=== PATIENT | female | born 1935 | race Caucasian/White ===

== ENCOUNTER → 2016-11-26 | Outpatient (CLI) | payer OTHER ==
[~2016-11-26] MED LIST: ACET-1138 PO; ACET1TAB84 PO; ATOR-24 PO; BTP80 PO; CLTP PO; FRRS300 PO; FURO80TA63 PO; LOSA50TA6 PO; NCY50 PO; ONDA8TAB6 PO; POLY99.0 OPB; PRLSR20 PO; PRM625 PO; SNK PO; WARF1TAB6 PO
[2016-11-26 18:10] LABS: URINE APPEARANCE CLEAR (CLEAR); URINE BILIRUBIN NEG (NEG); URINE COLOR YELLOW; URINE NITRITE NEG (NEG); URINE SPECIFIC GRAVITY 1.012 (1.000-1.030); UROBILINOGEN NEG (NEG); ZZUR CULT IF INDIC CLEAN CATCH NO
[2016-11-26 18:11] LABS: INR 1.8 (0.9-1.1); PARTIAL THROMBOPLASTIN RATIO 1.2; PROTHROMBIN TIME (PATIENT) 19.9 SECONDS (9.0-12.0)
[2016-11-26 18:12] LABS: MANUAL MICROSCOPIC REQUIRED? NO; REVIEW REQ? NO
[2016-11-26 18:31] LABS: BASO % 0.1 %; BASO ABS # 0.01 K/uL (0-0.2); COMPLETE YES; EOS % 0.1 %; HEMATOCRIT 43.4 % (37-47); IG% 0.6 %; LYMPH % 13.2 %; LYMPH ABS # 0.96 K/uL (1.2-3.4); MEAN CELL VOLUME 100.2 fL (80-100); MEAN CORPUSCULAR HEMOGLOBIN 31.4 pg (25-34); MEAN CORPUSCULAR HGB CONC 31.3 g/dl (32-36); MEAN PLATELET VOLUME 11.9 fL (7.4-10.4); MONO % 5.1 %; NEUT % 80.9 %; PLATELET COUNT 153 K/uL (130-400); RED BLOOD COUNT 4.33 M/uL (4.2-5.4); WHITE BLOOD COUNT 7.26 K/uL (4.8-10.8)
[2016-11-26 18:43] LABS: BLOOD UREA NITROGEN 23 mg/dl (7-18); BUN/CREATININE RATIO 23.8 (10-20); CALCIUM 8.9 mg/dl (8.5-10.1); CARBON DIOXIDE 28 mmol/L (21-32); CHLORIDE 104 mmol/L (98-107); CREATININE 0.95 mg/dl (0.60-1.20); GLUCOSE 154 mg/dl (70-99); POTASSIUM 4.3 mmol/L (3.5-5.1); SODIUM 140 mmol/L (136-145)
[2016-11-27 06:30] LABS: ESTIMATED AVERAGE GLUCOSE 123 mg/dl; HA1C FLAG Normal (Normal)
--- NOTE | 2016-12-02 11:50 | CODING QUERY MEDICAL NECESSITY ---
CQSUPPORTING DIAGNOSIS NEEDED A supporting diagnosis is required for the test/procedure performed on this patient in order for us to be reimbursed by the patient's insurance. Please provide a supporting diagnosis for the following test/procedure listed below next to the test name along with your signature. *If there is no additional diagnosis for this patient that would support the following test/procedure please document that below next to the test/procedure. Test(s)/Procedure(s) that require a supporting diagnosis: DOS 11/26/16 GLYCATED HEMOGLOBIN PROTHROMBIN TIME PROTHROMBIN Provider Signature: Date: Thank you Jenniffer Desai [facility] Information Management Once completed, please kindly fax back to [phone] For questions please call [phone]
== END | disposition home or self-care (01) ==
LOC: C.LABMFLN 10:11
PROVIDERS: ATTEND Orthopaedic Surgery Sports Medicine
DX: Z01.818 Encounter for other preprocedural examination (principal)

== ENCOUNTER 2016-12-18 10:06 | Inpatient (IN) | payer OTHER ==
[2016-10-02 13:38] VITALS: BMI 27.0
[2016-10-02 13:48] VITALS: BMI 26.0
--- NOTE | 2016-10-02 14:13 | PAT Medication Instructions ---
Service Date Oct 02, 2016. Current Home Medication List Acetaminophen (Tylenol Arthritis Ext Rel), 1,300 MG PO BID Atorvastatin (Lipitor), 40 MG PO WEDNESDAY AM Calcium/Vitamin D (Caltrate 600 Plus *), 1 TAB PO BID Estrogens, Conjugated (Premarin), 0.625 MG PO QAM Ferrous Sulfate (Ferrous Sulfate), 1 TAB PO QAM Furosemide (Furosemide), 20 MG PO QAM Losartan Potassium (Cozaar), 50 MG PO QPM Omeprazole (Prilosec), 20 MG PO QAM Polyvinyl Alcohol (Artificial Tears), 1 DROP OPB PRN Sotalol Hcl (Betapace *), 120 MG PO BID Warfarin Sod (Jantoven), 1.5 MG PO 4xweek Warfarin Sod (Jantoven), 1 MG PO 3XWEEK Medication Instructions For Your Scheduled Surgery Warfarin Sod (Jantoven), (per [facility] instructions) - Hold the following medications evening prior to surgery: Losartan Potassium (Cozaar), 50 MG PO QPM - Hold the following medications the morning of surgery: Furosemide (Furosemide), 20 MG PO QAM Ferrous Sulfate (Ferrous Sulfate), 1 TAB PO QAM Calcium/Vitamin D (Caltrate 600 Plus *), 1 TAB PO BID Estrogens, Conjugated (Premarin), 0.625 MG PO QAM (can take after the surgery ) - Take the following medications the morning of surgery with a sip of water: Sotalol Hcl (Betapace *), 120 MG PO BID Polyvinyl Alcohol (Artificial Tears), 1 DROP OPB PRN Omeprazole (Prilosec), 20 MG PO QAM Atorvastatin (Lipitor), 40 MG PO WEDNESDAY AM Acetaminophen (Tylenol Arthritis Ext Rel), 1,300 MG PO BID (if needed) - Take the following medications as scheduled the night before surgery: Sotalol Hcl (Betapace *), 120 MG PO BID Polyvinyl Alcohol (Artificial Tears), 1 DROP OPB PRN Calcium/Vitamin D (Caltrate 600 Plus *), 1 TAB PO BID Acetaminophen (Tylenol Arthritis Ext Rel), 1,300 MG PO BID If you have any questions please call us at [phone] or [phone] ( Sandra) or [phone]
[2016-10-02 15:06] LABS: BASO % 0.3 %; BASO ABS # 0.02 K/uL (0-0.2); COMPLETE YES; HEMATOCRIT 40.5 % (37-47); IG% 0.6 %; LYMPH % 12.5 %; LYMPH ABS # 0.82 K/uL (1.2-3.4); MEAN CELL VOLUME 96.7 fL (80-100); MEAN CORPUSCULAR HGB CONC 32.1 g/dl (32-36); MEAN PLATELET VOLUME 10.8 fL (7.4-10.4); MONO % 6.1 %; NEUT % 80.5 %; PLATELET COUNT 172 K/uL (130-400); RED BLOOD COUNT 4.19 M/uL (4.2-5.4); WHITE BLOOD COUNT 6.56 K/uL (4.8-10.8)
[2016-10-02 15:10] LABS: MANUAL MICROSCOPIC REQUIRED? NO; REVIEW REQ? NO; URINE APPEARANCE CLEAR (CLEAR); URINE BILIRUBIN NEG (NEG); URINE COLOR YELLOW; URINE EPITHELIAL CELL AUTO >30 /lpf (0-5); URINE NITRITE NEG (NEG); URINE SPECIFIC GRAVITY 1.012 (1.000-1.030); UROBILINOGEN NEG (NEG); ZZUR CULT IF INDIC CLEAN CATCH YES
[2016-10-02 15:14] LABS: INR 1.8 (0.9-1.1); PARTIAL THROMBOPLASTIN RATIO 1.2; PROTHROMBIN TIME (PATIENT) 20.1 SECONDS (9.0-12.0)
--- NOTE | 2016-10-02 15:24 | DIAGNOSTIC IMAGING REPORT ---
CHEST PREADMISSION(PA/LAT) CLINICAL HISTORY: Preoperative chest COMPARISON STUDY: 08/15/2015 FINDINGS: The heart is at the upper limits of normal in size. There is mild aortic tortuosity/ectasia. There is no focal pulmonary consolidation. There is no failure. There are no pleural effusions. There are minor atelectatic changes at the level of the left costophrenic angle. There are postsurgical changes involving the spine[ IMPRESSION: No active disease in the chest. Electronically signed by: Stuart Donis M.D. 10/02/2016 3:22 PM Dictated Date/Time: 10/02/2016 3:21 PM
[2016-10-02 15:25] LABS: BUN/CREATININE RATIO 24.5 (10-20); CALCIUM 8.6 mg/dl (8.5-10.1); CREATININE 0.73 mg/dl (0.60-1.20); ESTIMATED AVERAGE GLUCOSE 131 mg/dl; HA1C FLAG Normal (Normal); POTASSIUM 4.5 mmol/L (3.5-5.1)
--- NOTE | 2016-12-17 21:26 | HISTORY & PHYSICAL EXAMINATION ---
DATE OF ADMISSION: 12/18/2016 REVISED HISTORY AND PHYSICAL CHIEF COMPLAINT: Right shoulder pain. HISTORY OF PRESENT ILLNESS: This is an 81-year-old female patient of Dr. Sharif'lyric complaining of chronic right shoulder pain, longstanding, now progressively getting worse. The patient has been diagnosed with end-stage osteoarthritis with insufficient rotator cuff and wished to proceed with a right reversed total shoulder arthroplasty. PAST MEDICAL HISTORY: Heart murmur, hypertension, palpitations, osteoarthritis, neck problems, sciatica, and acid reflux. SOCIAL HISTORY: Nonsmoker, nondrinker. PAST SURGICAL HISTORY: Both total knee replacements, right rotator cuff surgery x2, hysterectomy, cholecystectomy, tonsillectomy, x3, hernia repair and appendectomy. REVIEW OF SYSTEMS: The patient complains of chronic right shoulder pain and weakness. Otherwise, denies any shortness of breath, chest pain, nausea, vomiting or any other joint complaints. FAMILY HISTORY: Noncontributory. SOCIAL HISTORY: Nonsmoker, nondrinker. MEDICATIONS: 1. Tylenol Arthritis 650 mg daily. 2. Coumadin 1 to 1.5 mg daily as directed. 3. Flonase 50 mcg each nostril daily. 4. Losartan 50 mg daily. 5. Premarin 0.625 mg monthly. 6. Sotalol 120 mg b.i.d. 7. Prilosec 20 mg daily. 8. Atorvastatin 40 mg daily. 9. Ferrous sulfate 325 mg daily. 10. Calcium 600 daily. 11. Lasix 40 mg daily. 12. Prednisone 5 mg 2 tablets q.a.m. ALLERGIES: LATEX, SULFONAMIDE, OXYCODONE, GABAPENTIN, OCCLUSIVE TAPE AND ADHESIVE AND DEMEROL. PHYSICAL EXAMINATION: GENERAL: Well-developed, well-nourished 81-year-old female in no acute distress. She is alert and oriented x3 and pleasant. HEENT: Normocephalic, atraumatic. Extraocular motions are intact. Pupils are equal and reactive to light. HEART: Has an irregular heartbeat consistent with aFib: LUNGS: Clear. ABDOMEN: Soft and nontender, bowel sounds are present. EXTREMITIES: Right shoulder reveals active range of motion of 90 degrees, passively to 170. She has 3/5 strength globally. She has crepitation and pain with passive range of motion. NEUROLOGIC: Neurovascularly, she is intact in her right upper extremity. DIAGNOSES: Right shoulder end-stage osteoarthritis with insufficient rotator cuff. She has a history of a heart murmur, hypertension, palpitations, osteoarthritis, neck problems, sciatica, and acid reflux. PLAN: The patient was advised of her diagnosis. Indications, risks, benefits, and postop course have all been reviewed. The patient wishes to proceed with a right reversed total shoulder arthroplasty. Necessary consent forms, preoperative testing and clearances will be obtained. BILL
--- NOTE | 2016-12-17 21:31 | HISTORY & PHYSICAL EXAMINATION ---
DATE OF ADMISSION: 12/18/2016 CHIEF COMPLAINT: Chronic right shoulder pain. HISTORY OF PRESENT ILLNESS: This is an 81-year-old female patient of Dr. Sharif'lyric complaining of chronic right shoulder pain and decreased strength, long-standing and now progressively getting worse. The patient has failed conservative treatments. She has been diagnosed with end-stage osteoarthritis and insufficient rotator cuff per clinical and radiographic exams. She wishes to proceed with a right reverse total shoulder arthroplasty. PAST MEDICAL HISTORY: Heart murmur, hypertension, palpitations, osteoarthritis, neck problems, sciatica and acid reflux. SOCIAL HISTORY: Nonsmoker and nondrinker. PAST SURGICAL HISTORY: Bilateral knee surgery, shoulder surgery, right rotator cuff surgery, hysterectomy, cholecystectomy, tonsillectomy, x3, hernia repair and appendectomy. FAMILY HISTORY: Noncontributory. REVIEW OF SYSTEMS: The patient complains of chronic right shoulder pain and decreased strength. Otherwise denies any shortness of breath, chest pain, nausea, vomiting or any other joint complaints. MEDICATIONS: Inlcude; 1. Tylenol 650 as needed. 2. Coumadin 1 mg 1 to 1.5 tablets daily. 3. Flonase 50 mcg nasal route one spray in each nostril daily. 4. Losartan 50 mg daily. 5. Premarin 0.625 mg every 21 days. 6. Sotalol 120 mg one tablet b.i.d. 7. Prilosec 20 mg daily. 8. Atorvastatin 40 mg daily. 9. Ferrous sulfate 325 mg daily. 10. Calcium daily. 11. Lasix 40 mg daily. 12. Prednisone 5 mg two tablets q.a.m. ALLERGIES: INCLUDE LATEX, SULFA, OXYCODONE, GABAPENTIN, TAPE, ADHESIVES. PLAN: The patient was advised of her diagnoses. Indications, risks, benefits, postop course have all been reviewed. The patient wishes to proceed with a right reverse total shoulder arthroplasty. Necessary consent forms, preoperative testing and clearances will be obtained.
[~2016-12-18] VITALS: Ht 160 cm; Wt 69.0 kg
[~2016-12-18 10:06] MED LIST changes: -ACET-1138 PO; +ACETAMINOPHEN 500 MG TAB PO SCH; +BUPIVACAINE 0.5 % 5 MG/1 ML PF 10ML VIAL ONE; +CEFAZOLIN 1000MG/55 ML D5W 55 ML IV SCH; +CLONIDINE HCL 100 MCG/ML SYRINGE ONE; +CeleBREX 200 MG CAP PO SCH; +DEXAMETHASONE 4 MG TAB PO SCH; +FAMOTIDINE 20 MG TAB PO SCH; +GABAPENTIN 300 MG CAP PO SCH; +LACTATED RINGER'S 1000ML 1,000 ML IV SCH; +LACTATED RINGER'S 1000ML IV SCH; +MEPIVACAINE HCL 1.5% 30 ML VIAL ONE; +METOCLOPRAMIDE HCL 10 MG TAB PO SCH; -NCY50 PO; -ONDA8TAB6 PO; -SNK PO
[2016-12-18 10:50] VITALS: BP 140/81; PULSE 71; TEMP 36.5; O2SAT 92; Ht 160 cm; Wt 69.0 kg
[2016-12-18 11:16] LABS: PARTIAL THROMBOPLASTIN RATIO 0.9; PROTHROMBIN TIME (PATIENT) 10.8 SECONDS (9.0-12.0)
--- NOTE | 2016-12-18 12:17 | History & Physical Bridge Note ---
H&P Re-Evaluation Bridge Note: I have examined the patient, reviewed the History & Physical and in the interval since the performance of the History & Physical I have noted the following changes of clinical significance: No changes noted
[2016-12-18] MEDS ORDERED: MIDAZOLAM HCL 1 MG/ML 2ML VIAL ONE ×2 (13:04→13:39)
[2016-12-18] MEDS ORDERED: FENTANYL CITRATE INJ 50 MCG/1 ML 2 ML VIAL ONE ×3 (13:04→13:40)
[2016-12-18] MEDS ORDERED: NEOSTIGMINE METHYLSULFATE 5 MG/5 ML SYR ONE (13:39)
[2016-12-18] MEDS ORDERED: PROPOFOL IV EMULSION 10 MG/ML 20 ML VIAL IV ONE (13:39)
[2016-12-18] MEDS ORDERED: ONDANSETRON INJ 2 MG/ML 2 ML VIAL ONE (13:39)
[2016-12-18] MEDS ORDERED: LIDOCAINE HCL 2% 2 ML VIAL (20MG/ML) ONE (13:39)
[2016-12-18] MEDS ORDERED: GLYCOPYRROLATE INJ 0.2 MG/ML VIAL ONE ×2 (13:39→15:18)
[2016-12-18] MEDS ORDERED: ROCURONIUM BROMIDE 10 MG/ML 5 ML VIAL ONE (13:39)
[2016-12-18] MEDS ORDERED: DEXAMETHASONE SOD INJ 4 MG/ML VIAL ONE (13:39)
[2016-12-18] MEDS ORDERED: BACITRACIN 50000 UNIT VIAL ONE (13:47)
[2016-12-18] MEDS ORDERED: ETOMIDATE 2 MG/ML 20 ML VIAL IV ONE (15:18)
[2016-12-18] MEDS ORDERED: PHENYLEPHRINE HCL INJ 10 MG/ML VIAL ONE (15:18)
[2016-12-18] MEDS ORDERED: SUCCINYLCHOLINE CHLORIDE 20 MG/ML 10 ML VIAL IV ONE (15:18)
[2016-12-18] MEDS ORDERED: EpHEDrine SULFATE INJ 50 MG/ML AMP IV PRN (15:30)
[2016-12-18] MEDS ORDERED: ONDANSETRON INJ 2 MG/ML 2 ML VIAL IV PRN (15:30)
[2016-12-18] MEDS ORDERED: PHENYLEPHRINE 100MCG/ML 5ML SYR IV PRN (15:30)
[2016-12-18] MEDS ORDERED: FENTANYL CITRATE INJ 50 MCG/1 ML 2 ML VIAL IV PRN (15:30)
[2016-12-18] MEDS ORDERED: FLUMAZENIL 0.1 MG/1 ML 10 ML VIAL IV PRN (15:30)
[2016-12-18] MEDS ORDERED: NALOXONE HCL 0.4 MG/1 ML VIAL/CARP IV PRN ×2 (15:30→16:45)
[2016-12-18] MEDS ORDERED: LABETALOL HCL IV 5 MG/ML 20ML IV PRN (15:30)
--- NOTE | 2016-12-18 16:39 | [facility] Operative Report ---
Operative Report Operative Date December 18, 2016. Pre-Operative Diagnosis Right shoulder end-stage osteoarthritis chronic rotator cuff tear failed prior repairs Post-Operative Diagnosis same biceps tendinopathy Procedure(s) Performed reversed TSA bicep tenodesis right Surgeon Dr. Miguelangel Sharif Waterproofing Mixer Surgeon(s) Albert Hedrick PA-C Estimated Blood Loss 50mL Findings as above Specimens A. Right Humeral Head Drains 2 hemovac Anesthesia general regional Complication(s) None Disposition Recovery Room / PACU Indications end stage arthropathy I attest to the content of the Intraoperative Record and any orders documented therein. Any exceptions are noted below.
[2016-12-18] MEDS ORDERED: SOD PHOSPHATE/SOD BIPHOSPHATE ENEMA 132 ML BTL PR PRN (16:45)
[2016-12-18] MEDS ORDERED: TAPENTADOL HCL 50 MG TAB PO PRN (16:45)
[2016-12-18] MEDS ORDERED: ARTIFICIAL TEARS OP SOLN OPB PRN ×2 (16:45)
[2016-12-18] MEDS ORDERED: BISACODYL 10 MG SUPP PR PRN (16:45)
[2016-12-18] MEDS ORDERED: ZOLPIDEM TARTRATE 5 MG TAB PO PRN (16:45)
[2016-12-18] MEDS ORDERED: MAGNESIUM HYDROXIDE SUSP 30 ML UDC PO PRN (16:45)
[2016-12-18] MEDS ORDERED: MoRPHine SULFATE 2 MG/ML CARP IV PRN ×2 (16:45→17:00)
[2016-12-18] MEDS ORDERED: MoRPHine SULFATE 4 MG/ML 1 ML CARP\\VIAL IV PRN (17:00)
--- NOTE | 2016-12-18 17:25 | Anesthesiology Progress Note ---
Anesthesia Post Op Note Date & Time December 18, 2016 at 17:22 Vital Signs Pain Intensity: 1 Vital Signs Past 12 Hours Date Time Temp Pulse Resp B/P Pulse Ox O2 Delivery O2 Flow Rate FiO2 12/18/16 17:10 67 16 175/85 99 Nasal Cannula 3 166/80 12/18/16 16:50 70 16 172/83 99 Mask 10 158/71 12/18/16 16:41 36.3 75 16 144/55 99 Mask 10 12/18/16 10:50 36.5 71 20 140/81 92 Room Air Notes Mental Status: alert / awake / arousable, participated in evaluation Pt Amnestic to Procedure: Yes Nausea / Vomiting: adequately controlled Pain: adequately controlled Airway Patency, RR, SpO2: stable & adequate BP & HR: stable & adequate Hydration State: stable & adequate Anesthetic Complications: no major complications apparent The patient did well during the surgery. She was monitored with an arterial line and had a phenylephrine gtt to maintain her blood pressure. She is stable in recovery. I spoke to Dr. Bell who will follow the patient on the floor.
--- NOTE | 2016-12-18 17:29 | DIAGNOSTIC IMAGING REPORT ---
RIGHT SHOULDER MIN 2 VIEWS ROUTINE CLINICAL HISTORY: Post shoulder surgery Right COMPARISON STUDY: None. FINDINGS: 2 views of the right shoulder demonstrate a reverse total shoulder arthroplasty. The hardware appears intact. No fracture or dislocation. Skin joann and surgical drains are in place. IMPRESSION: Right total shoulder arthroplasty. No evidence for hardware complication. Electronically signed by: Rony Mccoy M.D. 12/18/2016 5:28 PM Dictated Date/Time: 12/18/2016 5:27 PM
[2016-12-18 17:45] VITALS: BP 157/91; PULSE 65; TEMP 36.6; O2SAT 96
--- NOTE | 2016-12-18 18:10 | OPERATIVE REPORT ---
DATE OF OPERATION: 12/18/2016 INDICATION FOR PROCEDURE: The patient is an 81-year-old female with chronic progressive pain in her right shoulder. History of 2 previous rotator cuff repair with one of the repairs being opened. She developed progressive pain and disability with regard to degenerative arthritis now on her right shoulder. She clearly has rotator cuff arthropathy on x-rays. She has proximal migration of the humerus. She has [id number] in the glenohumeral joint. PREOPERATIVE DIAGNOSES: Rotator cuff arthropathy, end-stage glenohumeral osteoarthritis and failed rotator cuff repair. POSTOPERATIVE DIAGNOSES: Same including biceps tenosynovitis, biceps tendinopathy. PROCEDURE: Right reverse total shoulder arthroplasty including a biceps tenodesis. SURGEON: Dr. Sharif. CONFECTIONERY LABORATORY MANAGER: Albert Hedrick PA-C ANESTHESIA: Regional block and general. OPERATIVE PROCEDURE: The patient was taken to the operating room, anesthetized block and general anesthetic. Her shoulder exam demonstrated she had passive forward elevation to 150 degrees, abduction to 100 and external rotation between 25 and 30 only and marked [id number] crepitation. She had anterior scar a long scar extending anterolateral over the deltoid. Her right shoulder was then positioned on the operating room table with a towel roll in the medial border of right scapula. She was translated to right side of the bed, so her shoulder could be manipulated off the bed as necessary. A foam headrest was placed. Protective eyewear was placed. TEDS, SCDs and a Miguel were placed. She was placed in about the 40 degree beach chair position. Her right shoulder was then sterilely prepped and draped with ChloraPrep in the usual sterile fashion. We did not use her scar and just used an anterior medial and placed deltopectoral incision. Skin was incised in longitudinal fashion. Fat was divided down the fascia. The cephalic vein was dissected out and retracted laterally with the deltoid. Pectoralis was retracted medially. The upper centimeter of the pectoralis was released for inferior exposure. The biceps tendon was identified. 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 The biceps tendon was tenodesed to the pectoralis tendon using [id number] #2 FiberWire sutures. The proximal biceps was divided and resected. The axillary nerve was palpated and identified. Some of the fibers of the anterior subscap were maintained and dissected vertically down splitting the fibers to the capsule and then with palpation of the nerve, I placed Hohmann retractor to protect the nerve inferiorly. Then we did remove some of the subscapularis bursa, released the adhesions under the deltoid, identified that the patient had a chronic posterior supraspinatus and anterior infraspinatus tendon tear, the majority of the infraspinatus was still intact and the teres minor was intact. The anterior supraspinatus was still intact. This part of the supraspinatus was sacrificed and the rotator interval was opened up laterally and extended the incision down into the bicipital groove. The subscapularis was then taken down subperiosteally from the bicipital groove across the lesser tuberosity and onto the neck and humerus. With gradual external rotation, this revealed a small inferior humeral osteophyte which was resected. There was no humeral articular cartilage. There was all exposed bone. The humeral head was retracted posterior to the glenoid with a Fukuda retractor. The capsule was released under direct visualization with the axillary nerve protected inferiorly down to the anterior glenoid at about the 5 o'clock position and then we went ahead and released the capsule superior to that with Alonzo scissors up to the rotator interval and the incision connected from the rotator interval down to that incision so we had a complete 360 degree release of the subscapularis. We then placed #1 Vicryl traction suture into the subscapularis to use it as traction suture. Then I placed a Bankart retractor anteriorly. I resected the glenoid circumferentially and the biceps remnant superiorly and then did a capsular release on bone with electrocautery on bone and a Interiano elevator to release the anterior inferior, posterior inferior capsule and the triceps tendon. The glenoid was noted to be about 80% exposed bone with about a small rim of the anterior articular cartilage remaining with some bone wear posterior. There was no major retroversion of the glenoid. At this time, the humeral head was re-exposed with extension and external rotation. The cutting guide was placed for the reversed II Aequalis Ascend Flex total shoulder arthroplasty system and we used the 25 mm baseplate and a 36 mm glenosphere implants. The humeral head cut was made just above the intact infraspinatus tendon using an oscillating saw at 20 degrees retroversion cut. Then the humeral head was retracted posterior to the glenoid and then the drill hole was made for the 25 mm base plate so that the baseplate would be positioned at the inferior aspect of the glenoid articular surface. We placed 10 degrees of inferior tilt on this. I then used the reamer for a 25 baseplate. Then we widened the hole for the baseplate and then impacted the baseplate into position. The 25 mm baseplate was then impacted into position. There was excellent press fit. We used anterior and posterior compression screws and superior and inferior locking screws. We used an 18 mm anterior and posterior compression screws and 32 mm superior and inferior locking screws. The anterior compression screw initially had a decent bite, but then it seemed to the start dispense only a fair bite there, posterior screw was excellent, the superior and inferior screws were extremely secure. After copious irrigation, we used the fan reamer to ream for the 36 glenosphere and all debris was irrigated out and removed and then the 36 mm glenosphere was impacted in position and the screw was tightened. Then attention was taken to the humerus preparation. A central opening awl was used followed by broaches up to 3, which was matching templating. Then the broaches were used up to a size 3 with the trial long stem. Then we went ahead with a high offset baseplate and a 9 insert gave the appropriate balance and stability. There was no shuck and good soft tissue balance. The trials were removed. The final components were chosen. The final components were the Ascend Flex D size 3 long stem was attached to the high offset +0 reversed tray attached to the 36+9 poly insert for the reversed. The component was assembled. The bone was irrigated copiously with antibiotic solution and bacitracin. Three drill holes were made through the bicipital groove, good bone and three #5 FiberWire sutures were placed to repair the subscapularis. Then the implant was impacted until fully seated at 20 degrees of retroversion. Then the implant was reduced to the glenosphere and we verified stability through full motion. We verified that there was no shuck and good stability. Then the wound was copiously irrigated with antibiotic solution and bacitracin. Subscapularis was repaired with the #5 FiberWire sutures using Teto-Samuel suture technique. A soft tissue lateral row fixation was performed with [id number] #2 FiberWire. Then the pectoralis was closed with [id number] #2 FiberWire reinforcing the biceps tenodesis. The range of motion was assessed and was about 35 degrees of external rotation, easily 90 degrees of abduction and forward elevation 150 without any tension on the subscap repair and there was good stability of the shoulder. After thorough irrigation, the 2 drains were brought out laterally connected to the Hemovac. The deltopectoral was closed with [id number] #1 Vicryl sutures. Subcutaneous tissues were closed with interrupted 2-0 Vicryl, skin closed with joann, and sterile dressings were applied and Op-Site used because of a tape allergy. GRAY Covarrubias was my respiratory assistant. He functioned as the respiratory assistant for the entire procedure. He assisted in patient positioning, prepping, draping, arm positioning, instrument management, soft tissue retraction. He performed the subcutaneous and skin closure and will participate in the postoperative care of the patient. The patient's estimated blood loss was less than 50 mL. I attest to the content of the Intraoperative Record and any orders documented therein. Any exceptions are noted below. BILL
[2016-12-18 18:15] VITALS: BP 157/64; PULSE 65; TEMP 36.8; O2SAT 98
[2016-12-18] MEDS ORDERED: HYDROCORTISONE IV 100 MG in SYRINGE 0 ML IV SCH (18:30)
[2016-12-18 18:45] VITALS: BP 154/73; PULSE 79; TEMP 36.5; O2SAT 98
[2016-12-18] MEDS ORDERED: WARFARIN SOD 1 MG TAB PO SCH (19:00)
[2016-12-18 19:51] VITALS: BP 135/78; PULSE 72; TEMP 36.6; O2SAT 98
[2016-12-18] MEDS: D5W AND 1/2NSS + 20MEQ KCL 1,000 ML IV SCH (20:16)
[2016-12-18] MEDS: SOTALOL HCL 80 MG TAB PO SCH (21:04)
[2016-12-18] MEDS: DOCUSATE SODIUM 100 MG CAP PO SCH (21:05)
[2016-12-18] MEDS: CALCIUM 600MG + VIT D 400 IU TAB PO SCH (21:05)
[2016-12-18] MEDS: SENNA 8.6 MG TAB PO SCH (21:05)
[2016-12-18] MEDS: LOSARTAN POTASSIUM 50 MG TAB PO SCH (21:06)
--- NOTE | 2016-12-18 22:04 | Medical Consult ---
Consultation Date of Consultation: December 18, 2016 ~ 20:30 . Attending Physician: Miguelangel Sharif M.D. . Reason for Consultation: medical management . History of Present Illness 81 YO female from [place] followed by Dr. Giron. History of coronary artery disease, chronic atrial fibrillation, diastolic CHF, hypertension, PMR on chronic steroids, and other problems as noted below. She was seen for preoperative Cardiology evaluation on 10/29/[address] Prasad in [place]. Recent echo demonstrated normal LV systolic function. Right reversed total shoulder arthroplasty performed today by Dr. Sharif under general + regional anesthesia. Doing well postoperatively. No chest pain. No cough or dyspnea. No nausea or vomiting. Postop pain well-controlled. . Past Medical/Surgical History Chronic Medical Problems: (1) Aortic regurgitation Status: Chronic (2) Asthma Status: Chronic (3) Chronic atrial fibrillation Status: Chronic (4) Coronary artery disease Status: Chronic (5) Dyslipidemia Status: Chronic (6) Hypertension Status: Chronic (7) Mitral regurgitation Status: Chronic (8) Polymyalgia rheumatica Status: Chronic Surgical Problems: (1) Status post appendectomy Status: Chronic (2) Status post arthroscopy of knee Status: Chronic (3) Status post cataract extraction Status: Chronic (4) Status post hysterectomy Status: Chronic (5) Status post inguinal hernia repair Status: Chronic . Family History FATHER Hypertension Stroke Prostate cancer Lymphoma MOTHER Hypertension Social History Smoking Status: Never Smoker Alcohol Use: none Marital Status: Housing Status: lives with family Allergies Coded Allergies: Meperidine (Verified Allergy, Severe, NAUSEA VOMITING, 12/18/16) Adhesives (Unverified Allergy, Unknown, RASH,, 12/18/16) Gabapentin (Unverified Allergy, Unknown, HALLUCINATIONS, 12/18/16) Homatropine (Unverified Allergy, Unknown, RASH,NAUSEA AND VOMITING, ) Hydrocodone (Unverified Allergy, Unknown, RASH,NAUSEA AND VOMITING, ) Latex1 -Allergic Contact Dermititis (Verified Allergy, Unknown, RASH, 12/18) Lisinopril (Unverified Allergy, Unknown, COUGH, 12/18/16) Metronidazole (Unverified Allergy, Unknown, VOMITING, 12/18/16) Pneumococcal Vaccine (Verified Allergy, Unknown, redness, swelling around injection site, 12/18/16) Sulfa Drugs (Verified Allergy, Unknown, PT UNSURE OF RXN, OCCURED A CHILD, 12/18/16) Tramadol (Unverified Allergy, Unknown, CONSTIPATION, 12/18/16) Lorazepam (Verified Adverse Reaction, Unknown, HALLUCINATIONS, 12/18/16) Oxycodone (Verified Adverse Reaction, Unknown, SEVERE NAUSEA AND VOMITING , 12/18/16) Home Medications Reported Home Medications Medications Dose Route/Sig Max Daily Dose Days Date Category Dose Instructions Lasix (Furosemide) 80 Mg Tab 80 Mg PO DAILY 10/30/16 Reported Artificial Tears (Polyvinyl Alcohol) 1.4 % Renea 1 Drop OPB PRN 10/02/16 Reported Jantoven (Warfarin Sodium) 1 Mg Tab 1 Mg PO 3XWEEK 10/02/16 Reported Wednesday Jantoven (Warfarin Sodium) 1 Mg Tab 1.5 Mg PO 4XWEEK 10/02/16 Reported Wednesday Lipitor (Atorvastatin Calcium) 40 Mg Tab 40 Mg PO WEDNESDAY AM 08/15/15 Reported Ferrous Sulfate 325 Mg Tab 1 Tab PO QAM 08/15/15 Reported Tylenol Arthritis Ext Rel (Acetaminophen) 650 Mg Cplt 1,300 Mg PO BID 08/15/15 Reported Cozaar (Losartan Potassium) 50 Mg Tab 50 Mg PO QPM 04/12/13 Reported Prilosec (Omeprazole) 20 Mg Capcr 20 Mg PO QAM 03/01/13 Reported Premarin (Estrogens Conjugated) 0.625 Mg Tab 0.625 Mg PO QAM 04/27/11 Reported Caltrate 600 Plus * (Calcium/Vitamin D) Tab 1 Tab PO BID 02/06/09 Reported Betapace * (Sotalol HCl) 80 Mg Tab 120 Mg PO BID 02/06/09 Reported Current Inpatient Medications Current Inpatient Medications Medications (Trade) Dose Ordered Sig/David Route Start Time Stop Time Status Last Admin Dose Admin Lactated Ringer's 1,000 ml @ 15 mls/hr Q24H IV 12/18/16 06:00 12/19/16 05:59 Lactated Ringer's (Lr 1000ml) 1,000 ml @ 60 mls/hr [id number] IV 12/18/16 06:00 12/18/16 22:39 12/18/16 11:23 60 MLS/HR Atorvastatin Calcium (Lipitor Tab) 40 mg We@0900 PO 12/23/16 09:00 01/22/17 08:59 Calcium/Vitamin D (Caltrate Plus Tab) 1 tab BID PO 12/18/16 21:00 01/17/17 20:59 12/18/16 21:05 1 TAB Estrogens Conjugated (Premarin Tab) 0.625 mg QAM PO 12/19/16 09:00 01/18/17 08:59 Ferrous Sulfate (Feosol Tab) 325 mg QAM PO 12/19/16 09:00 01/18/17 08:59 Furosemide (Lasix Tab) 80 mg DAILY PO 12/19/16 09:00 01/18/17 08:59 Losartan Potassium (coZAAR TAB) 50 mg QPM PO 12/18/16 21:00 01/17/17 20:59 12/18/16 21:06 50 MG Sotalol HCl (Betapace Tab) 120 mg BID PO 12/18/16 21:00 01/17/17 20:59 12/18/16 21:04 120 MG Warfarin Sodium (Coumadin Tab) 1 mg MoWeFr@1600 PO 12/18/16 19:00 01/17/17 18:59 12/18/16 20:16 1 MG Warfarin Sodium (Coumadin Tab) 1.5 mg SuTuThSa@1600 PO 12/19/16 16:00 01/18/17 15:59 Artificial Tears (Artificial Tears) 1 drops PRN PRN OPB 12/18/16 16:45 01/17/17 16:44 Diphenhydramine HCl (Benadryl Cap) 25 mg Q8 PRN PO 12/18/16 16:45 01/17/17 16:44 Zolpidem Tartrate (Ambien Tab) 5 mg HSZ PRN PO 12/18/16 16:45 01/17/17 16:44 Pantoprazole Sodium 40 mg 40 mg QAM PO 12/19/16 09:00 01/18/17 08:59 Potassium Chloride/Dextrose/ Sod Cl (D5W And 1/2nss + 20meq KCl) 1,000 ml @ 100 mls/hr Q10H IV 12/18/16 18:30 12/19/16 17:00 12/18/16 20:16 100 MLS/HR Acetaminophen (Tylenol Tab) 1,000 mg Q8 PO 12/18/16 22:00 01/17/17 21:59 Naloxone HCl (Narcan Inj) 0.1 mg Q2M PRN IV 12/18/16 16:45 01/17/17 16:44 Magnesium Hydroxide (Milk Of Magnesia Susp) 30 ml Q6H PRN PO 12/18/16 16:45 01/17/17 16:44 Bisacodyl (Dulcolax Supp) 10 mg DAILY PRN OK 12/18/16 16:45 01/17/17 16:44 Sodium Biphosphate/ Sodium Phosphate (Fleet Enema) 132 ml DAILY PRN OK 12/18/16 16:45 01/17/17 16:44 Senna (Senokot Tab) 17.2 mg HS PO 12/18/16 21:00 01/17/17 20:59 12/18/16 21:05 17.2 MG Docusate Sodium (coLACE CAP) 100 mg BID PO 12/18/16 21:00 01/17/17 20:59 12/18/16 21:05 100 MG Multivitamins 1 tab 1 tab DAILY PO 12/19/16 09:00 01/18/17 08:59 Cefazolin Sodium/ Dextrose (Ancef Iv/D5 50ml) 55 ml @ 100 mls/hr Q8H IV 12/18/16 22:00 12/19/16 06:32 Tapentadol (Nucynta Tab) 50 mg Q4H PRN PO 12/18/16 16:45 01/01/17 16:44 Morphine Sulfate (MoRPHine SULFATE INJ) 2 mg Q2H PRN IV 12/18/16 17:00 01/01/17 16:59 Morphine Sulfate (MoRPHine SULFATE INJ) 4 mg Q2H PRN IV 12/18/16 17:00 01/01/17 16:59 Prednisone 5 mg 5 mg DAILY@1700 PO 12/19/16 17:00 01/18/17 16:59 Hydrocortisone Sodium Succinate/ Syringe (Solu-Cortef IV/ Syringe) 2 ml @ 4 mls/min Q8H IV 12/18/16 18:30 12/19/16 10:31 12/18/16 20:16 4 MLS/MIN Review of Systems Constitutional: No fever ENT: + hearing loss (chronic) Respiratory: No cough, No shortness of breath Cardiovascular: No chest pain Abdomen: + constipation, No GI bleeding, No diarrhea, No nausea, No vomiting Musculoskeletal: + joint pain (right shoulder) Genitourinary - Female: No dysuria, No hematuria Hematologic / Lymphatic: + abnormal bleeding/bruising Integumentary: + problem reported (recent H zoster) Physical Exam Date Time Temp Pulse Resp B/P Pulse Ox O2 Delivery O2 Flow Rate FiO2 12/18/16 19:51 36.6 72 16 135/78 98 Nasal Cannula 2.0 12/18/16 18:45 36.5 79 16 154/73 98 Nasal Cannula 12/18/16 18:15 36.8 65 16 157/64 98 Room Air 2.0 12/18/16 17:45 36.6 65 16 157/91 96 Nasal Cannula 2.0 12/18/16 17:25 36.5 67 16 163/86 99 Nasal Cannula 3 163/76 12/18/16 17:10 67 16 175/85 99 Nasal Cannula 3 166/80 12/18/16 16:50 70 16 172/83 99 Mask 10 158/71 12/18/16 16:41 36.3 75 16 144/55 99 Mask 10 12/18/16 10:50 36.5 71 20 140/81 92 Room Air General Appearance: WD/WN, no apparent distress Head: normocephalic, atraumatic Eyes: normal inspection, PERRL, EOMI, sclerae normal ENT: + pertinent finding (hearing impaired; upper partial plate) Neck: supple, no adenopathy, thyroid normal, no JVD, trachea midline Respiratory/Chest: lungs clear, no respiratory distress, no accessory muscle use Cardiovascular: + irregularly irregular, + pertinent finding (no murmur or gallop appreciated; normal capillary refill right fingers) Abdomen/GI: normal bowel sounds, non tender, soft, no organomegaly Extremities/Musculoskelatal: no calf tenderness, no pedal edema, + pertinent finding (TEDS + SCD's applied; right shoulder immobilized) Neurologic/Psych: acute care registered nurse II-XII nml as tested (PERRL, EOMI, no facial palsy, no dysarhthria), no motor/sensory deficits (grossly intact), alert, normal mood/ affect, oriented x 3 Skin: normal color, warm/dry Lymphatic: no adenopathy (cervical) Laboratory Results Item Value Date Time Hemoglobin 13.0 g/dL 10/02/16 1418 Hematocrit 40.5 % 10/02/16 1418 White Blood Count 6.56 K/uL 10/02/16 1418 Platelet Count 172 K/uL 10/02/16 1418 Prothrombin Time 20.1 SECONDS H 10/02/16 1418 Prothromb Time International Ratio 1.8 H 10/02/16 1418 Activated Partial Thromboplast Time 31.5 SECONDS H 10/02/16 1418 Sodium Level 139 mmol/L 10/02/16 1418 Potassium Level 4.5 mmol/L 10/02/16 1418 Chloride Level 104 mmol/L 10/02/16 1418 Carbon Dioxide Level 28 mmol/L 10/02/16 1418 Blood Urea Nitrogen 18 mg/dl 10/02/16 1418 Creatinine 0.73 mg/dl 10/02/16 1418 Random Glucose 129 mg/dl H 10/02/16 1418 Hemoglobin A1c 6.2 % H 10/02/16 1418 Last 24 Hours Test 12/18/16 10:48 Prothrombin Time 10.8 SECONDS Prothromb Time International Ratio 1.0 Activated Partial Thromboplast Time 24.0 SECONDS Partial Thromboplastin Ratio 0.9 Assessment & Plan STATUS POST RT REVERSED TSA POD # 0. Doing well postoperatively. CORONARY ARTERY DISEASE No anginal symptoms. Continue sotalol and statin. CHRONIC ATRIAL FIBRILLATION Rate controlled on sotalol. Warfarin held for surgery and ordered postop. DIASTOLIC CHF Compensated. Continue furosemide. HYPERTENSION LEYDA 135/78 postop. Continue sotalol and losartan. PMR / CHRONIC PREDNISONE THERAPY Received dexamethasone preop. Hydrocortisone 100 mg IV ordered postop. Will order additional dose of 50 mg x 1, then resume usual prednisone dose. VTE PROPHYLAXIS TEDS, SCD's, warfarin ordered postop. Thank you for this consultation. We will follow the patient with you during their hospital stay. Dr. Salgado will be rounding starting 12/19. You [facility] via pager @ [phone]. You can reach me via cell @ [phone]. .
[2016-12-18] MEDS: CEFAZOLIN IV 1,000 MG in DEXTROSE 5% 50ML 50 ML IV SCH (22:16)
[2016-12-18] MEDS: ACETAMINOPHEN 500 MG TAB PO SCH (22:18)
[2016-12-18 23:11] VITALS: BP 111/76; PULSE 71; TEMP 36.6; O2SAT 99
[2016-12-19] VITALS (8 sets, daily range): BP systolic 116–146; BP diastolic 70–80; PULSE 63–82; TEMP 36.4–36.9; O2SAT 95–99
[2016-12-19] MEDS: D5W AND 1/2NSS + 20MEQ KCL 1,000 ML IV SCH ×2 (04:39→15:11)
[2016-12-19] MEDS: CEFAZOLIN IV 1,000 MG in DEXTROSE 5% 50ML 50 ML IV SCH (05:25)
[2016-12-19] MEDS: ACETAMINOPHEN 500 MG TAB PO SCH ×3 (05:29→20:43)
[2016-12-19] MEDS ORDERED: HYDROCORTISONE IV 50 MG in SYRINGE 0 ML IV ONE (06:00)
[2016-12-19 06:18] LABS: HEMATOCRIT 38.4 % (37-47); MEAN CELL VOLUME 97.2 fL (80-100); MEAN CORPUSCULAR HEMOGLOBIN 31.6 pg (25-34); MEAN CORPUSCULAR HGB CONC 32.6 g/dl (32-36); MEAN PLATELET VOLUME 11.2 fL (7.4-10.4); PLATELET COUNT 138 K/uL (130-400); RED BLOOD COUNT 3.95 M/uL (4.2-5.4); WHITE BLOOD COUNT 10.83 K/uL (4.8-10.8)
[2016-12-19 06:53] LABS: BUN/CREATININE RATIO 16.2 (10-20); CALCIUM 7.7 mg/dl (8.5-10.1); CREATININE 0.9 mg/dl (0.60-1.20); POTASSIUM 4.6 mmol/L (3.5-5.1)
--- NOTE | 2016-12-19 08:00 | Orthopedic Progress Note ---
Orthopedic Progress Note Date of Service December 19, 2016. Subjective Post OP Day: 1 Reports: feeling well, Denies: SOB, calf pain, chest pain, light headedness, nausea / vomiting Objective calves soft nontender, N/V intact, dressing C/D/I, A&O x3, toes mobile, hemovac drainage (150/50cc per shift) Date Time Temp Pulse Resp B/P Pulse Ox O2 Delivery O2 Flow Rate FiO2 12/19/16 03:00 36.6 66 17 146/79 99 Nasal Cannula 2.0 12/18/16 23:11 36.6 71 18 111/76 99 Nasal Cannula 2.0 12/18/16 19:51 36.6 72 16 135/78 98 Nasal Cannula 2.0 12/18/16 18:45 36.5 79 16 154/73 98 Nasal Cannula 12/18/16 18:15 36.8 65 16 157/64 98 Room Air 2.0 12/18/16 17:45 Nasal Cannula 2.0 12/18/16 17:45 96 Nasal Cannula 2.0 12/18/16 17:45 36.6 65 16 157/91 96 Nasal Cannula 2.0 12/18/16 17:25 36.5 67 16 163/86 99 Nasal Cannula 3 163/76 12/18/16 17:10 67 16 175/85 99 Nasal Cannula 3 166/80 12/18/16 16:50 70 16 172/83 99 Mask 10 158/71 12/18/16 16:41 36.3 75 16 144/55 99 Mask 10 12/18/16 10:50 36.5 71 20 140/81 92 Room Air Laboratory Results 24 Hours: Test 12/18/16 10:48 12/19/16 05:35 Prothromb Time International Ratio 1.0 Prothrombin Time 10.8 SECONDS Hematocrit 38.4 % Hemoglobin 12.5 g/dL Assessment & Plan Assessment: POD#1 sp R reverse TSA Afib- on coumadin Inhouse Planning Pain Management: PO Tylenol, other (Nucynta) DVT Prophylaxis: TEDs, SCDs, Coumadin Discharge Planning Discharge Planning: home with home health ([facility] HOME TOMORROW.)
--- NOTE | 2016-12-19 08:04 | Discharge Instructions ---
Discharge Instructions Date of Service December 19, 2016. Admission Reason for Admission: Right Shoulder Rotator Cuff Arthropathy Discharge Discharge Diagnosis / Problem: RIGHT REVERSE TOTAL SHOULDER Discharge Goals Goal(s): Decrease discomfort, Improve function, Increase independence Activity Recommendations Activity Limitations: per Instructions/Follow-up section ACTIVITY RECOMMENDATIONS: SELF CARE INSTRUCTIONS AFTER TOTAL SHOULDER ARTHROPLASTY REVERSE A. You may do daily exercises as taught in physical therapy while in hospital. No lifting with the operative arm. B. You are to wear your sling/immobilizer at all times EXCEPT when performing your daily exercises and for hygiene purposes. C. You may perform dry, daily dressing changes. Please keep your incision covered. You may shower 48 hours after surgery. Do not apply soap or any ointment/ lotions directly over incision. Do not soak incision in bath tub/swimming pool. D. You may use ice as needed to operative shoulder. SPECIAL CARE INSTRUCTIONS: VERY IMPORTANT TO READ AND REVIEW A. There are a few signs you need to watch for after you are home. Call [facility] at [phone] if you experience any of the followin. Increased severe shoulder pain. Some pain is expected especially when you exercise. 2. Increased swelling in you shoulder or arm; pain or swelling in either upper extremity. 3. Any fluid drainage from the incision. 4. Shortness of breath or chest pain. B. Please call [facility] at [phone] if you have any questions or concerns about your operation or recovery. C. Call your physician if: 1. Temperature is greater than 101 degrees (F). 2. Pain is not relieved by prescribed pain medications. 3. Increase drainage or redness from incision. 4. Unanswered questions or concerns. FOLLOW UP VISIT: Please call [facility] at [phone] to schedule a follow up appointment with Dr. Sharif or his PA in 12-14 days from your surgery date. . Current Hospital Diet Patient's current hospital diet: Regular Diet Discharge Diet Recommended Diet: Regular Diet Procedures Procedures Performed: Right Reverse Total Shoulder Arthroplasty Pending Studies Studies pending at discharge: no Laboratory Results Hemoglobin A1c Test 11/26/16 14:28 Range/Units Estimated Average Glucose 123 mg/dl Hemoglobin A1c 5.9 H 4.5-5.6 % Medical Emergencies . Who to Call and When: Medical Emergencies: If at any time you feel your situation is an emergency, please call 911 immediately. . Non-Emergent Contact Non-Emergency issues call your: Surgeon . "Provider Documentation" section prepared by Jennifer Barrios. . VTE Core Measure Inpt VTE Proph given/why not?: Warfarin (Coumadin), ReynaldoEEnio Gerardo, SCD's PA Drug Monitoring Program Search Results: patient reviewed within database, no issues identified
[2016-12-19] MEDS: DOCUSATE SODIUM 100 MG CAP PO SCH ×2 (09:26→20:42)
[2016-12-19] MEDS: CALCIUM 600MG + VIT D 400 IU TAB PO SCH ×2 (09:26→20:43)
[2016-12-19] MEDS: FERROUS SULFATE 325 MG TAB PO SCH (09:26)
[2016-12-19] MEDS: PANTOprazole SOD 40 MG TAB PO SCH ×2 (09:26→10:38)
[2016-12-19] MEDS: MULTIVITAMIN TAB PO SCH (09:27)
[2016-12-19] MEDS: SOTALOL HCL 80 MG TAB PO SCH ×2 (09:27→20:42)
[2016-12-19] MEDS: ESTROGENS, CONJUGATED 0.625 MG TAB PO SCH (09:28)
[2016-12-19] MEDS: FUROSEMIDE 80 MG TAB PO SCH (09:28)
[2016-12-19] MEDS ORDERED: NURSING VERBAL MED ORDER ONE (14:00)
[2016-12-19] MEDS ORDERED: ONDANSETRON INJ 2 MG/ML 2 ML VIAL IV PRN (14:15)
[2016-12-19] MEDS ORDERED: WARFARIN SOD 0.5 MG TAB PO SCH (16:00)
--- NOTE | 2016-12-19 17:13 | Progress Note ---
Medicine Progress Note Date & Time of Visit: December 19, 2016 at 1600. Subjective 81 yo F with recent shoulder surgery yesterday -feeling well post-op -she is tolerating PO -she is passing gas but no BM yet -pain is well controlled at this time. -denies sensation loss in fingers. -has been working with therapy today Objective Last 8 Hrs Date Time Temp Pulse Resp B/P Pulse Ox O2 Delivery O2 Flow Rate FiO2 12/19/16 15:58 36.9 66 12 131/72 98 Room Air 12/19/16 15:45 Room Air 12/19/16 13:14 95 Room Air 12/19/16 11:55 36.8 74 11 116/70 95 Room Air 12/19/16 09:10 Room Air Physical Exam: GEN: WNWD, in no acute distress, alert and appropriate HEENT: NC/AT, pupils are equal and round, normal sclerae/conjunctivae, MMM appear slightly dry CARDIO: reg rate, S1/2 heard without m/g/r LUNGS: CTA bilaterally, no crackles, rales or wheezes, good diaphragmatic excursion ABD: soft, non-tender, non-distended, no rebound or guarding, +BS EXTREMITY: RP palpable 2+ bilat, no LE swelling or edema, extremities are warm and well-perfused NEURO: CN 2-12 intact, sensation intact in RUE MUSC: no focal deficits, moves all extremities equally. SKIN: warm and dry Laboratory Results: 12/19/16 05:35 12/19/16 05:35 Test 10/02/16 00:00 10/02/16 14:18 12/18/16 10:48 12/19/16 05:35 Urine Color YELLOW Urine Appearance CLEAR (CLEAR) Urine pH 5.0 (4.5-7.5) Urine Specific [place] 1.012 (1.000-1.030) Urine Protein NEG (NEG) Urine Glucose (UA) NEG (NEG) Urine Ketones NEG (NEG) Urine Occult Blood TRACE (NEG) Urine Nitrite NEG (NEG) Urine Bilirubin NEG (NEG) Urine Urobilinogen NEG (NEG) Urine Leukocyte Esterase NEG (NEG) Urine WBC (Auto) 1-5 /hpf (0-5) Urine RBC (Auto) 0-4 /hpf (0-4) Urine Hyaline Casts (Auto) 1-5 /lpf (0-5) Urine Epithelial Cells (Auto) >30 /lpf (0-5) Urine Bacteria (Auto) 1+ (NEG) Immature Granulocyte % (Auto) 0.6 % White Blood Count 6.56 K/uL (4.8-10.8) Red Blood Count 4.19 M/uL (4.2-5.4) 3.95 M/uL (4.2-5.4) Hemoglobin 13.0 g/dL (12.0-16.0) Hematocrit 40.5 % (37-47) Mean Corpuscular Volume 96.7 fL (80-100) 97.2 fL (80-100) Mean Corpuscular Hemoglobin 31.0 pg (25-34) 31.6 pg (25-34) Mean Corpuscular Hemoglobin Concent 32.1 g/dl (32-36) 32.6 g/dl (32-36) Platelet Count 172 K/uL (130-400) Mean Platelet Volume 10.8 fL (7.4-10.4) 11.2 fL (7.4-10.4) Neutrophils (%) (Auto) 80.5 % Lymphocytes (%) (Auto) 12.5 % Monocytes (%) (Auto) 6.1 % Eosinophils (%) (Auto) 0.0 % Basophils (%) (Auto) 0.3 % Neutrophils # (Auto) 5.28 K/uL (1.4-6.5) Lymphocytes # (Auto) 0.82 K/uL (1.2-3.4) Monocytes # (Auto) 0.40 K/uL (0.11-0.59) Eosinophils # (Auto) 0.00 K/uL (0-0.5) Basophils # (Auto) 0.02 K/uL (0-0.2) Immature Granulocyte # (Auto) 0.04 K/uL (0.00-0.02) Estimated Average Glucose 131 mg/dl Hemoglobin A1c 6.2 % (4.5-5.6) Albumin 2.9 gm/dl (3.4-5.0) Prothrombin Time 10.8 SECONDS (9.0-12.0) Prothromb Time International Ratio 1.0 (0.9-1.1) Activated Partial Thromboplast Time 24.0 SECONDS (21.0-31.0) Partial Thromboplastin Ratio 0.9 RDW Standard Deviation 46.8 fL (36.4-46.3) RDW Coefficient of Variation 13.1 % (11.5-14.5) Anion Gap 10.0 mmol/L (3-11) Est Creatinine Clear Calc Drug Dose 44.9 ml/min Estimated GFR () 69.0 Estimated GFR (Non- 59.5 BUN/Creatinine Ratio 16.2 (10-20) Calcium Level 7.7 mg/dl (8.5-10.1) Date/Time Source Procedure Growth Status 10/02/16 00:00 Urine , Clean Catch Urine Culture - Final NO GROWTH - LESS THAN 1,000 COLONIES/ML Complete Last 24 Hours Test 12/19/16 05:35 White Blood Count 10.83 K/uL Red Blood Count 3.95 M/uL Hemoglobin 12.5 g/dL Hematocrit 38.4 % Mean Corpuscular Volume 97.2 fL Mean Corpuscular Hemoglobin 31.6 pg Mean Corpuscular Hemoglobin Concent 32.6 g/dl RDW Standard Deviation 46.8 fL RDW Coefficient of Variation 13.1 % Platelet Count 138 K/uL Mean Platelet Volume 11.2 fL Sodium Level 141 mmol/L Potassium Level 4.6 mmol/L Chloride Level 106 mmol/L Carbon Dioxide Level 25 mmol/L Anion Gap 10.0 mmol/L Blood Urea Nitrogen 15 mg/dl Creatinine 0.90 mg/dl Est Creatinine Clear Calc Drug Dose 44.9 ml/min Estimated GFR () 69.0 Estimated GFR (Non- 59.5 BUN/Creatinine Ratio 16.2 Random Glucose 191 mg/dl Calcium Level 7.7 mg/dl Assessment & Plan 81 yo F with reverse TSA on 12/18 STATUS POST RT REVERSED TSA POD # 1. Doing well postoperatively. CORONARY ARTERY DISEASE No anginal symptoms. Continue statin. CHRONIC ATRIAL FIBRILLATION Rate controlled on sotalol. Warfarin held for surgery and ordered postop. DIASTOLIC CHF Compensated. Continue furosemide. HYPERTENSION at goal post-op Continue sotalol and losartan. PMR / CHRONIC PREDNISONE THERAPY Received IV steroids perioperatively Cont daily dose of prednisone 5mg VTE PROPHYLAXIS TEDS, SCD's, warfarin ordered postop. Thank you for this consultation. We will follow the patient with you during their hospital stay. You can reach a member of the [facility] Hospitalist Team 22/02 via pager @ . You can reach me via cell @ [phone]. Malu Salgado DO [facility] Hospitalist Current Inpatient Medications: Current Inpatient Medications Medications (Trade) Dose Ordered Sig/David Route Start Time Stop Time Status Last Admin Dose Admin Atorvastatin Calcium (Lipitor Tab) 40 mg We@0900 PO 12/23/16 09:00 01/22/17 08:59 Calcium/Vitamin D (Caltrate Plus Tab) 1 tab BID PO 12/18/16 21:00 01/17/17 20:59 12/19/16 09:26 1 TAB Estrogens Conjugated (Premarin Tab) 0.625 mg QAM PO 12/19/16 09:00 01/18/17 08:59 12/19/16 09:28 0.625 MG Ferrous Sulfate (Feosol Tab) 325 mg QAM PO 12/19/16 09:00 01/18/17 08:59 12/19/16 09:26 325 MG Furosemide (Lasix Tab) 80 mg DAILY PO 12/19/16 09:00 01/18/17 08:59 12/19/16 09:28 80 MG Losartan Potassium (coZAAR TAB) 50 mg QPM PO 12/18/16 21:00 01/17/17 20:59 12/18/16 21:06 50 MG Sotalol HCl (Betapace Tab) 120 mg BID PO 12/18/16 21:00 01/17/17 20:59 12/19/16 09:27 120 MG Warfarin Sodium (Coumadin Tab) 1 mg MoWeFr@1600 PO 12/18/16 19:00 01/17/17 18:59 12/18/16 20:16 1 MG Warfarin Sodium (Coumadin Tab) 1.5 mg SuTuThSa@1600 PO 12/19/16 16:00 01/18/17 15:59 12/19/16 15:50 1.5 MG Artificial Tears (Artificial Tears) 1 drops PRN PRN OPB 12/18/16 16:45 01/17/17 16:44 Diphenhydramine HCl (Benadryl Cap) 25 mg Q8 PRN PO 12/18/16 16:45 01/17/17 16:44 Zolpidem Tartrate (Ambien Tab) 5 mg HSZ PRN PO 12/18/16 16:45 01/17/17 16:44 Pantoprazole Sodium (Protonix Tab) 40 mg QAM PO 12/19/16 09:00 01/18/17 08:59 12/19/16 10:38 40 MG Acetaminophen (Tylenol Tab) 1,000 mg Q8 PO 12/18/16 22:00 01/17/17 21:59 12/19/16 15:11 1,000 MG Naloxone HCl (Narcan Inj) 0.1 mg Q2M PRN IV 12/18/16 16:45 01/17/17 16:44 Magnesium Hydroxide (Milk Of Magnesia Susp) 30 ml Q6H PRN PO 12/18/16 16:45 01/17/17 16:44 Bisacodyl (Dulcolax Supp) 10 mg DAILY PRN OK 12/18/16 16:45 01/17/17 16:44 Sodium Biphosphate/ Sodium Phosphate (Fleet Enema) 132 ml DAILY PRN OK 12/18/16 16:45 01/17/17 16:44 Senna (Senokot Tab) 17.2 mg HS PO 12/18/16 21:00 01/17/17 20:59 12/18/16 21:05 17.2 MG Docusate Sodium (coLACE CAP) 100 mg BID PO 12/18/16 21:00 01/17/17 20:59 12/19/16 09:26 100 MG Multivitamins (Multivitamin Tab) 1 tab DAILY PO 12/19/16 09:00 01/18/17 08:59 12/19/16 09:27 1 TAB Tapentadol (Nucynta Tab) 50 mg Q4H PRN PO 12/18/16 16:45 01/01/17 16:44 12/19/16 00:36 50 MG Morphine Sulfate (MoRPHine SULFATE INJ) 2 mg Q2H PRN IV 12/18/16 17:00 01/01/17 16:59 Morphine Sulfate (MoRPHine SULFATE INJ) 4 mg Q2H PRN IV 12/18/16 17:00 01/01/17 16:59 12/19/16 04:44 4 MG Prednisone (PredniSONE TAB) 5 mg DAILY@1700 PO 12/19/16 17:00 01/18/17 16:59 Ondansetron HCl (Zofran Inj) 4 mg Q8H PRN IV 12/19/16 14:15 01/18/17 14:14
[2016-12-19] MEDS: LOSARTAN POTASSIUM 50 MG TAB PO SCH (20:41)
[2016-12-19] MEDS: SENNA 8.6 MG TAB PO SCH (20:42)
[2016-12-20] MEDS: ACETAMINOPHEN 500 MG TAB PO SCH (05:30)
[2016-12-20 05:52] LABS: HEMATOCRIT 39.3 % (37-47); MEAN CELL VOLUME 98.5 fL (80-100); MEAN CORPUSCULAR HEMOGLOBIN 31.1 pg (25-34); MEAN CORPUSCULAR HGB CONC 31.6 g/dl (32-36); MEAN PLATELET VOLUME 11.9 fL (7.4-10.4); PLATELET COUNT 148 K/uL (130-400); RED BLOOD COUNT 3.99 M/uL (4.2-5.4); WHITE BLOOD COUNT 11.65 K/uL (4.8-10.8)
[2016-12-20 06:01] LABS: PROTHROMBIN TIME (PATIENT) 11.2 SECONDS (9.0-12.0)
[2016-12-20 06:23] LABS: BUN/CREATININE RATIO 21.5 (10-20); CALCIUM 8.7 mg/dl (8.5-10.1); CREATININE 0.86 mg/dl (0.60-1.20); POTASSIUM 4.1 mmol/L (3.5-5.1)
[2016-12-20 07:11] VITALS: BP 129/73; PULSE 64; TEMP 36.4; O2SAT 98
--- NOTE | 2016-12-20 07:28 | Orthopedic Progress Note ---
Orthopedic Progress Note Date of Service December 20, 2016. Subjective Post OP Day: 2 Reports: feeling well, Denies: SOB, calf pain, chest pain, light headedness, nausea / vomiting Objective calves soft nontender, N/V intact, dressing C/D/I, A&O x3, toes mobile Date Time Temp Pulse Resp B/P Pulse Ox O2 Delivery O2 Flow Rate FiO2 12/20/16 07:11 36.4 64 16 129/73 98 Room Air 12/19/16 23:30 36.7 82 16 131/80 97 Room Air 12/19/16 20:39 73 119/80 12/19/16 19:21 36.7 72 17 132/76 95 Room Air 12/19/16 19:15 Room Air 12/19/16 15:58 36.9 66 12 131/72 98 Room Air 12/19/16 15:45 Room Air 12/19/16 13:14 95 Room Air 12/19/16 11:55 36.8 74 11 116/70 95 Room Air 12/19/16 09:10 Room Air 12/19/16 08:36 36.4 63 10 116/74 99 Room Air Laboratory Results 24 Hours: Test 12/20/16 05:05 Hematocrit 39.3 % Hemoglobin 12.4 g/dL Prothromb Time International Ratio 1.0 Prothrombin Time 11.2 SECONDS Assessment & Plan Assessment: POD#2 sp R reverse TSA Afib- on coumadin Inhouse Planning Pain Management: PO Tylenol, other (Nucynta) DVT Prophylaxis: TEDs, SCDs, Coumadin Discharge Planning Discharge Planning: home with home health ([facility].)
[2016-12-20] MEDS ORDERED: ONDA8TAB6 PO (07:29)
[2016-12-20] MEDS ORDERED: SNK PO (07:29)
[2016-12-20] MEDS ORDERED: NCY50 PO (07:29)
[2016-12-20] MEDS ORDERED: ACET-1138 PO (07:29)
[2016-12-20] MEDS: DOCUSATE SODIUM 100 MG CAP PO SCH (08:41)
[2016-12-20] MEDS: FUROSEMIDE 80 MG TAB PO SCH (08:41)
[2016-12-20] MEDS: CALCIUM 600MG + VIT D 400 IU TAB PO SCH (08:41)
[2016-12-20] MEDS: MULTIVITAMIN TAB PO SCH (08:41)
[2016-12-20] MEDS: FERROUS SULFATE 325 MG TAB PO SCH (08:41)
[2016-12-20] MEDS: PANTOprazole SOD 40 MG TAB PO SCH (08:41)
[2016-12-20] MEDS: ESTROGENS, CONJUGATED 0.625 MG TAB PO SCH (08:41)
[2016-12-20] MEDS: SOTALOL HCL 80 MG TAB PO SCH (08:42)
[2016-12-20 08:45] VITALS: TEMP 36.4; O2SAT 98
[2016-12-20 10:33] VITALS: BP 129/73; PULSE 64; O2SAT 98
[2016-12-23] MEDS ORDERED: ATORVASTATIN 40 MG TAB PO SCH (09:00)
--- NOTE | 2016-12-30 15:47 | DISCHARGE SUMMARY ---
HISTORY OF PRESENT ILLNESS: This is an 81-year-old female patient of Dr. Sharif's complaining of chronic right shoulder pain, longstanding, progressively getting worse. The patient has been diagnosed with end-stage osteoarthritis with insufficient rotator cuff and elected to proceed with a right reversed total shoulder arthroplasty. PAST MEDICAL HISTORY: Heart murmur, hypertension, palpitations, osteoarthritis, neck problems, sciatica and acid reflux. POSTOPERATIVE COURSE: The patient underwent a right reversed total shoulder arthroplasty and biceps tenodesis on 12/18/2016. The patient was followed closely with medical consultation, DVT prophylaxis in the form of Coumadin, which she was on preoperatively, physical therapy and pain control. She did well postoperatively and was discharged home with home health services on 12/20/2016. PHYSICAL EXAMINATION: Right shoulder incision was clean, dry and intact. Lucius were intact. Skin edges were approximated well. There was no redness or drainage. Neurologically and neurovascularly she was intact in her right upper extremity. DIAGNOSES: Status post right reverse total shoulder arthroplasty with biceps tenodesis. The patient has a history of heart murmur, hypertension, palpitations, osteoarthritis, neck problems, sciatica and acid reflux. PLAN: The patient was discharged home with home health services. She will follow up with Dr. Sharif as an outpatient as scheduled.
== END 2016-12-20 10:55 | disposition home health service (06) | DRG 483 ==
LOC: ENRESERVDT → ENRESERVTM → C.ACU 10:06 → C.3E 12:15
PROVIDERS: ADMIT Orthopaedic Surgery Sports Medicine; ATTEND Orthopaedic Surgery Sports Medicine
PROC: 0RRJ00Z Replacement of Right Shoulder Joint with Reverse Ball and Socket Synthetic Substitute, Open Approach (ICD-10-PCS; principal; 2016-12-18 12:40)
PROC: 0LS30ZZ Reposition Right Upper Arm Tendon, Open Approach (ICD-10-PCS; principal; 2016-12-18 12:40)
DX: M19.011 Primary osteoarthritis, right shoulder (principal); I50.32 Chronic diastolic (congestive) heart failure; I25.10 Atherosclerotic heart disease of native coronary artery without angina pectoris; I08.0 Rheumatic disorders of both mitral and aortic valves; E78.5 Hyperlipidemia, unspecified; M35.3 Polymyalgia rheumatica; H91.90 Unspecified hearing loss, unspecified ear; K21.9 Gastro-esophageal reflux disease without esophagitis; J45.909 Unspecified asthma, uncomplicated; K59.00 Constipation, unspecified; G89.29 Other chronic pain; I11.0 Hypertensive heart disease with heart failure; M19.90 Unspecified osteoarthritis, unspecified site; M54.30 Sciatica, unspecified side; I48.2 Chronic atrial fibrillation; Z79.52 Long term (current) use of systemic steroids; Z79.899 Other long term (current) drug therapy; Z79.01 Long term (current) use of anticoagulants; Z91.040 Latex allergy status; Z88.2 Allergy status to sulfonamides; Z88.5 Allergy status to narcotic agent; Z88.8 Allergy status to other drugs, medicaments and biological substances; Z88.7 Allergy status to serum and vaccine; Z91.048 Other nonmedicinal substance allergy status; Z82.49 Family history of ischemic heart disease and other diseases of the circulatory system; Z82.3 Family history of stroke; Z80.42 Family history of malignant neoplasm of prostate; Z80.7 Family history of other malignant neoplasms of lymphoid, hematopoietic and related tissues; Z90.49 Acquired absence of other specified parts of digestive tract; Z90.710 Acquired absence of both cervix and uterus; Z96.653 Presence of artificial knee joint, bilateral